=== PATIENT | female | born 2000 | race Caucasian/White ===

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

== ENCOUNTER → 2022-07-13 | Outpatient (CLI) | payer OTHER, SELFPAY ==
[2022-07-13 12:53] LABS: Hepatitis B Surface Antibody Reactive
== END | disposition home or self-care (01) ==
PROVIDERS: PCP Pediatrics
DX: Z01.84 Encounter for antibody response examination (principal)
CPT/HCPCS: 36415; 86706